=== PATIENT | female | born 1985 | race African-American/Black ===

== ENCOUNTER 2023-05-30 14:23 | Inpatient (IN) | payer OTHER, SELFPAY ==
--- NOTE | 2023-05-29 22:08 | ED.GENMED ---
History of Present Illness
<DO Miguel Márquez Filed: 05/31/23 15:00>
General
Chief Complaint: Overdose Unintentional
Source: patient and ambulance crew
Time Seen by Provider: 05/29/23 21:53
Travel History
Have you had any contact with someone who has COVID-19?: Unable to Answer
Do you have any symptoms of coronavirus? Fever > 100 degrees, chills, cough, shortness of breath, sore throat, loss of taste or smell, muscle aches, or headache?: Unable to Answer
History of Present Illness
History of Present Illness:
38-year-old female brought to the emergency room by ambulance due to pronounced choreiform movements. She was observed by veda to be having the choreiform movements prompting him to call 911. Patient has a known history of methamphetamine
use. She has been here at this emergency room at least 2 times for similar episodes. Patient is able to answer questions despite these movements. She admits to shooting methamphetamine earlier this evening.
Past History
<DO Miguel Márquez Filed: 05/31/23 15:00>
Past History
ED Past Medical History: Asthma, Psychiatric (Depression, substance abuse) and Other (IVDA)
ED Past Surgical History: None
Social History
Drug: Former user, Marijuana, Cocaine, Narcotics and IVDA
Personal: Single
Family History
Family History: Negative Diabetes, Hypertension or CAD
Phy Exam
<DO Miguel Márquez Filed: 05/31/23 15:00>
Physical Exam
Physical Exam:
General: Awake, Alert, Oriented X3. Pronounced choreiform movements of the upper extremities, face, tongue
Vitals: Tachycardic
Head: Atraumatic
Eyes: Pupils equal, EOMI
Throat: Airway intact, no exudates
Neck: Trachea midline
Lungs: Clear and equal b/l
Heart: Regular rate, no murmurs
Abd: Soft, Nontender, No pulsatile mass
Neuro: No focal weakness
Skin: Warm, dry, no rash
Extremities: pulses equal b/l, no edema
Course
Noylt;Marquise Griffin, DO - Last Filed: 05/31/23 15:00>
Orders/Labs/Results
Orders:
Orders
05/29/23 21:43
Diphenhydramine [Benadryl] 50 mg .ROUTE .STK-MED ONE
Lorazepam [Ativan] 2 mg .ROUTE .STK-MED ONE
05/29/23 22:04
Cardiac Monitoring- Treatment ONCE
0.9% Sodium Chloride 1000 ml [Nss] 1,000 ml IV BOLUS
Lorazepam [Ativan] 2 mg IV NOW STA
Test Result ONCE
05/29/23 22:23
Complete Blood Count/With Diff Urgent
Comprehensive Metabolic Panel Urgent
Ferritin Urgent
Comment: ADD
Folate Urgent
Comment: ADD
HCG, Serum Qualitative Screen Urgent
Iron Urgent
Comment: ADD
Total Iron Binding Urgent
Comment: ADD
Vitamin B12 Urgent
Comment: ADD
05/29/23 22:29
Diphenhydramine [Benadryl] 50 mg IM NOW STA
05/30/23 Breakfast
Regular
At Your Request: Full Participation
Does patient need a safe tray?: No
Fluid Restriction: 1440 mL/day (48 oz)
05/30/23 10:41
Tib/Fib, Left 2 View [CR Leg Tibia/fibula Left 2 Vw] Urgent
Comment:
Reason For Exam: proximal anterior tibial pain where IO was placed
05/30/23 12:37
0.9% Sodium Chloride 1000 ml [Nss] 1,000 ml IV BOLUS
05/30/23 12:53
Fentanyl, Urine Urgent
Osmolality, Random Urine Urgent
Date Specimen was Collected: 05/30/23
Time Specimen was Collected: 12:42
Comment: ADD ON
Urinalysis Urgent
Date Specimen was Collected: 05/30/23
Time Specimen was Collected: 12:42
Comment: ADD ON
Urine Drug Abuse Screen Urgent
Date Specimen was Collected: 05/30/23
Time Specimen was Collected: 12:42
Urine Microscopic Urgent
Date Specimen was Collected: 05/30/23
Time Specimen was Collected: 12:42
Urine Sodium Urgent
Date Specimen was Collected: 05/30/23
Time Specimen was Collected: 12:42
Comment: ADD ON
05/30/23 13:35
Add On- LAB Routine
Tests Added?: iron, ferritin, tibc, folate, vit b12
Add On- LAB Urgent
Tests Added?: urinalysis, urine sodium, urine osmo
05/30/23 13:51
Admit/Transfer Patient As Directed
Co-Sign Provider:
Level of Care: Inpatient admission
Assign to:: Medical/Surgical
Physician / Group: Dre
Diagnosis: Hyponatremia
Reason for Hospitalization: IVFs
Expected length of stay greater than two midnights?: Yes
ELOS- Estimated Length of Stay in days: 3
I certify the patient meets the requirements for IP care: Yes
Code Status As Directed
Resuscitation Status: Full Code
05/30/23 14:04
NEUROLOGY CONSULT Routine
Consulting Provider: Vahe Stovall
Was physician already notified: Yes
05/30/23 16:29
0.9% Sodium Chloride 1000 ml [Nss] 1,000 ml IV 125 mls/hr
Acetaminophen [Tylenol] 650 mg PO Q4HPRN PRN
05/30/23 16:29
Case Management Consult Once
Case Management Consult: Other
Activity As Directed
Activity Level: Out of Bed-Early Mobility
With Assistance
Hemetest Stools As Directed
Comment: Notify Physician of any positive results; May Stop if Negative x 3
I&O [Intake/ Output] As Directed
Frequency: q12h
Pneumatic Compression Sleeves As Directed
Type: Knee high
Vital Signs As Directed
Frequency: Per unit guidelines
DX Deep Vein Thrombosis Video Routine
05/31/23 07:03
Basic Metabolic Panel IN AM
Complete Blood Count/No Diff IN AM
Magnesium IN AM
Abnormal Lab Results
05/29/23 05/30/23
22:23 12:53
WBC 19.6 H 10^3/uL
(4.8-10.8)
RBC 3.88 L 10^6/uL
(4.20-5.40)
Hgb 8.9 L g/dL
(12.0-16.0)
Hct 26.6 L %
(37.0-47.0)
MCV 68.6 L fL
(81.0-99.0)
MCH 22.9 L pg
(27.0-31.0)
RDW 18.4 H %
(11.5-14.5)
Plt Count 498 H 10^3/uL
(130-400)
Abs Immat Gran (auto) 0.1 H 10^3/uL
(0-0.05)
Absolute Neuts (auto) 12.8 H 10^3/uL
(1.4-6.5)
Absolute Lymphs (auto) 4.5 H 10^3/uL
(1.2-3.4)
Absolute Monos (auto) 2.1 H 10^3/uL
(0.1-0.6)
Monocytes % 10.8 H %
(1.7-9.3)
Sodium 128 L mmol/L
(135-145)
Carbon Dioxide 15 L mmol/L
(22-30)
BUN 22 H mg/dl
(7-17)
Glucose 63 L mg/dl
(70-99)
% Saturation 13 L %
(20-50)
AST 289 H U/L
(14-36)
ALT 82 H U/L
(0-35)
Folate > 20.0 H ng/ml
(2.76-20)
Urine Ketones 3+ A
(Negative)
Ur Leukocyte Esterase Trace A
(Negative)
Urine Bacteria Few A
(Negative)
Ur Amphetamines Screen Positive H
(Negative)
U Methamphetamines Scrn Positive H
(Negative)
U Benzodiazepines Scrn Positive H
(Negative)
U Marijuana (THC) Screen Positive H
(Negative)
05/29/23 22:23
05/29/23 22:23
Vital Signs
Initial and Last Documented VS:
Initial Vital Signs
Resp
38
05/29/23 21:45
Last Documented Vital Signs
Temp Pulse Resp BP Pulse Ox
98.6 F 105 20 128/88 100
05/31/23 07:20 05/31/23 07:20 05/31/23 07:20 05/31/23 07:20 05/31/23 07:20
<Allan Wong, DO - Last Filed: 05/30/23 12:40>
Orders/Labs/Results
Orders:
Orders
05/29/23 21:43
Diphenhydramine [Benadryl] 50 mg .ROUTE .STK-MED ONE
Lorazepam [Ativan] 2 mg .ROUTE .STK-MED ONE
05/29/23 22:04
Cardiac Monitoring- Treatment ONCE
0.9% Sodium Chloride 1000 ml [Nss] 1,000 ml IV BOLUS
Lorazepam [Ativan] 2 mg IV NOW STA
Test Result ONCE
05/29/23 22:23
Complete Blood Count/With Diff Urgent
Comprehensive Metabolic Panel Urgent
Ferritin Urgent
Comment: ADD
Folate Urgent
Comment: ADD
HCG, Serum Qualitative Screen Urgent
Iron Urgent
Comment: ADD
Total Iron Binding Urgent
Comment: ADD
Vitamin B12 Urgent
Comment: ADD
05/29/23 22:29
Diphenhydramine [Benadryl] 50 mg IM NOW STA
05/30/23 Breakfast
Regular
At Your Request: Full Participation
Does patient need a safe tray?: No
Fluid Restriction: 1440 mL/day (48 oz)
05/30/23 10:41
Tib/Fib, Left 2 View [CR Leg Tibia/fibula Left 2 Vw] Urgent
Comment:
Reason For Exam: proximal anterior tibial pain where IO was placed
05/30/23 12:37
0.9% Sodium Chloride 1000 ml [Nss] 1,000 ml IV BOLUS
05/30/23 12:53
Fentanyl, Urine Urgent
Osmolality, Random Urine Urgent
Date Specimen was Collected: 05/30/23
Time Specimen was Collected: 12:42
Comment: ADD ON
Urinalysis Urgent
Date Specimen was Collected: 05/30/23
Time Specimen was Collected: 12:42
Comment: ADD ON
Urine Drug Abuse Screen Urgent
Date Specimen was Collected: 05/30/23
Time Specimen was Collected: 12:42
Urine Microscopic Urgent
Date Specimen was Collected: 05/30/23
Time Specimen was Collected: 12:42
Urine Sodium Urgent
Date Specimen was Collected: 05/30/23
Time Specimen was Collected: 12:42
Comment: ADD ON
05/30/23 13:35
Add On- LAB Routine
Tests Added?: iron, ferritin, tibc, folate, vit b12
Add On- LAB Urgent
Tests Added?: urinalysis, urine sodium, urine osmo
05/30/23 13:51
Admit/Transfer Patient As Directed
Co-Sign Provider:
Level of Care: Inpatient admission
Assign to:: Medical/Surgical
Physician / Group: Dre
Diagnosis: Hyponatremia
Reason for Hospitalization: IVFs
Expected length of stay greater than two midnights?: Yes
ELOS- Estimated Length of Stay in days: 3
I certify the patient meets the requirements for IP care: Yes
Code Status As Directed
Resuscitation Status: Full Code
05/30/23 14:04
NEUROLOGY CONSULT Routine
Consulting Provider: Vahe Stovall
Was physician already notified: Yes
05/30/23 16:29
0.9% Sodium Chloride 1000 ml [Nss] 1,000 ml IV 125 mls/hr
Acetaminophen [Tylenol] 650 mg PO Q4HPRN PRN
05/30/23 16:29
Case Management Consult Once
Case Management Consult: Other
Activity As Directed
Activity Level: Out of Bed-Early Mobility
With Assistance
Hemetest Stools As Directed
Comment: Notify Physician of any positive results; May Stop if Negative x 3
I&O [Intake/ Output] As Directed
Frequency: q12h
Pneumatic Compression Sleeves As Directed
Type: Knee high
Vital Signs As Directed
Frequency: Per unit guidelines
DX Deep Vein Thrombosis Video Routine
05/31/23 07:03
Basic Metabolic Panel IN AM
Complete Blood Count/No Diff IN AM
Magnesium IN AM
Abnormal Lab Results
05/29/23 05/30/23
22:23 12:53
WBC 19.6 H 10^3/uL
(4.8-10.8)
RBC 3.88 L 10^6/uL
(4.20-5.40)
Hgb 8.9 L g/dL
(12.0-16.0)
Hct 26.6 L %
(37.0-47.0)
MCV 68.6 L fL
(81.0-99.0)
MCH 22.9 L pg
(27.0-31.0)
RDW 18.4 H %
(11.5-14.5)
Plt Count 498 H 10^3/uL
(130-400)
Abs Immat Gran (auto) 0.1 H 10^3/uL
(0-0.05)
Absolute Neuts (auto) 12.8 H 10^3/uL
(1.4-6.5)
Absolute Lymphs (auto) 4.5 H 10^3/uL
(1.2-3.4)
Absolute Monos (auto) 2.1 H 10^3/uL
(0.1-0.6)
Monocytes % 10.8 H %
(1.7-9.3)
Sodium 128 L mmol/L
(135-145)
Carbon Dioxide 15 L mmol/L
(22-30)
BUN 22 H mg/dl
(7-17)
Glucose 63 L mg/dl
(70-99)
% Saturation 13 L %
(20-50)
AST 289 H U/L
(14-36)
ALT 82 H U/L
(0-35)
Folate > 20.0 H ng/ml
(2.76-20)
Urine Ketones 3+ A
(Negative)
Ur Leukocyte Esterase Trace A
(Negative)
Urine Bacteria Few A
(Negative)
Ur Amphetamines Screen Positive H
(Negative)
U Methamphetamines Scrn Positive H
(Negative)
U Benzodiazepines Scrn Positive H
(Negative)
U Marijuana (THC) Screen Positive H
(Negative)
05/29/23 22:23
05/29/23 22:23
Vital Signs
Initial and Last Documented VS:
Initial Vital Signs
Resp
38
05/29/23 21:45
Last Documented Vital Signs
Temp Pulse Resp BP Pulse Ox
98.6 F 105 20 128/88 100
05/31/23 07:20 05/31/23 07:20 05/31/23 07:20 05/31/23 07:20 05/31/23 07:20
<Marquise Griffin DO - Last Filed: 05/31/23 15:00>
MDM/Problems Addressed
Differential Diagnosis Includes:
meth toxicity, cocaine toxicity, dystonic rx
MDM/Problems Addressed:
Patient presents with choreiform movements secondary to the use of methamphetamines. The patient uses meth frequently and states she always gets these movements. She is not particularly tachycardic or hypertensive. She not hypothermic. I do not
think she has 'overdose' of a sympathomimetic but rather adverse reaction. Patient treated with benzos and her choreiform movements decreased in activity. Patient will be observed until she is stable for discharge. Patient signed out at the end
of my shift
<Marquise Griffin DO - Last Filed: 05/31/23 15:00>
*Critical Care Note
Total Time (30-74mins, 75-104mins- exclusive of procedures): Not Applicable
<Allan Wong, DO - Last Filed: 05/30/23 12:40>
Update Note
Update Note:
12:30 PM care of patient was transitioned earlier in the morning for reevaluation and likely discharge. Patient has suspected methamphetamine abuse. The plan was to metabolize, ambulate and discharge. However, I reassessed the patient multiple
times. She is very sleepy. She is able to speak and hold a short conversation but she is too weak and wobbly when I try to ambulate her. Will give IV fluids for mild hyponatremia and ultimately admit. Drug and alcohol counselor did evaluate her
and they believe she has a rehab bed available but she is too unstable in this state to go
ED Attending Note
<Marquise Griffin DO - Last Filed: 05/31/23 15:00>
-
Portions of this chart may have been created with voice recognition software.� Occasional wrong word or��sound alike� substitutions may have occurred due to the inherent limitations of voice recognition software.
Discharge Plan
Departure
Patient Disposition: Admit
Date of Disposition: 05/30/23
Time of Disposition: 12:35
Admit to: Med/Surg
Presentation/result/management discussed w/ accepting MD/DO: Hospitalist
Discharge Problem:
Acute drug overdose, Acute hyponatremia
Interventions
Interventions:
*General Assessment Last Done: 05/29/23 22:31
*Neglect/Abuse Screening Last Done: 05/29/23 22:31
ED- Fall Risk Assessment Last Done: 05/30/23 16:25
*Nursing Disposition Last Done: 05/30/23 16:25
ED- Cardiac Assessment Last Done: 05/30/23 07:01
ED- Neurological Assessment Last Done: 05/29/23 22:32
ED-Psychological Assessment Last Done: 05/29/23 22:32
ED- Pulmonary Assessment Last Done: 05/30/23 07:01
Discharge Date and Time
Discharge Date/Time: 05/30/23 16:26
[2023-05-29] MEDS: ATIVAN 2 MG IV (22:27)
[2023-05-29 22:28] LABS: % Basophils 0.4 % (0-2); % Eosinophils 0.1 % (0-6); % Immature Granulocytes 0.5 % (0-0.5); % Lymphocytes 23.2 % (20.5-51.1); % Monocytes 10.8 % (1.7-9.3); Absolute Basophils 0.1 10^3/uL (0-0.2); Absolute Immature Granulocytes 0.1 10^3/uL (0-0.05); Absolute Lymphocytes 4.5 10^3/uL (1.2-3.4); Absolute Monocytes 2.1 10^3/uL (0.1-0.6); Absolute Neutrophils 12.8 10^3/uL (1.4-6.5); Hematocrit 26.6 % (37.0-47.0); Hemoglobin 8.9 g/dL (12.0-16.0); Mean Corp Hgb Conc. 33.5 g/dL (33.0-37.0); Mean Corpuscular Hgb 22.9 pg (27.0-31.0); Mean Corpuscular Volume 68.6 fL (81.0-99.0); Mean Platelet Volume 8.6 fL (7.4-10.4); Nucleated Red Blood Cells % 0 %; Platelet Count 498 10^3/uL (130-400); Red Blood Cell Count 3.88 10^6/uL (4.20-5.40); Red Cell Dist. Width 18.4 % (11.5-14.5); White Blood Cell Count 19.6 10^3/uL (4.8-10.8)
[2023-05-29] MEDS: BENADRYL 50 MG IM (22:30)
[2023-05-29 22:47] LABS: ALT (SGPT) 82 U/L (0-35); AST (SGOT) 289 U/L (14-36); Albumin 4.5 g/dl (3.5-5.0); Alkaline Phosphatase 122 U/L (38-126); Blood Urea Nitrogen 22 mg/dl (7-17); Calcium 9.2 mg/dl (8.4-10.2); Carbon Dioxide 15 mmol/L (22-30); Chloride 101 mmol/L (98-107); Glucose 63 mg/dl (70-99); HCG, Serum Qualitative Screen Negative; Potassium 4.9 mmol/L (3.5-5.1); Sodium 128 mmol/L (135-145); Total Protein 7.1 g/dl (6.3-8.2); eGFR > 60.00
[2023-05-30] VITALS (7 sets, daily range): BP systolic 107–130; BP diastolic 68–88; BMI 29.2
--- NOTE | 2023-05-30 13:15 | PHANOTE ---
05/30/2023, med rec tech, pt. obtunded at time of interview; pt. has no meds. listed on [facility] and no recent pharmacy fill data. Pt.'s home med. list is unobtainable at this time.
[2023-05-30] MEDS: NSS 1000 IV ×2 (13:33→16:49)
[2023-05-30 13:34] LABS: Amphetamines Positive (Negative); Barbiturates Negative (Negative); Benzodiazepines Positive (Negative); Buprenorphine Negative (Negative); Cocaine Negative (Negative); Marijuana Positive (Negative); Methadone Negative (Negative); Methamphetamines Positive (Negative); Opiates Negative (Negative); Phencyclidine Negative (Negative); Tricyclic Antidepressants Negative (Negative)
[2023-05-30 13:53] LABS: Fentanyl, Urine Negative (Negative)
[2023-05-30 13:57] LABS: Urine Sodium 54 mmol/L (30-90)
--- NOTE | 2023-05-30 14:05 | HPS.HSE ---
Addendum entered and electronically signed by Abdelrahman Erickson MD 05/30/23 18:16:
Pt answering basic questions. Pt examined with ISA Kaye student in room during entire exam
Seen independently and agree with PA note
Lungs clear
CV reg Ext no edema
Neuro choreiform movement
Imp: methamphetamine drug abuse
P:recheck labs in AM
As per CM: CM spoke with [facility] for placement update. As per Tahira at [facility], she is working on a bed at [facility] in [place] for placement on 05/30 if patient is medically ready. CM will continue to follow as needed.
Original Note:
Family Physician
-
Family Physician: INTERVIEWE UNKNOWN - PT NOT
Chief Complaint
-
Meth Overdose
History of Present Illness
Patient is a 38 y/o female with PMH of substance abuse and asthma who presents with choreiform movements. Patient was brought in by EMS after bystanders called 911 with concern for patient with uncontrolled movements of extremities. Patient admits
to injecting methamphetamine last evening. She says that she is a binge user and uses a few days per month. She denies drug use other than methamphetamine however UDS is positive for marijuana. She says these symptoms of tremors and myalgias are
typical in the days following a aaliyah. Patient says she eats most days but not everyday and can't remember her last meal. She admits to poor fluid intake recently. She cannot remember her last BM but says she has been urinating per usual. She is
somnolent and needed to be woken throughout the conversation.
Medical History
Past Medical History
Past Medical History: Reports Other
Additional Past Medical History:
Depression
Anxiety
Substance abuse
Past Surgical History: Reports Other
Additional Past Surgical History:
Foot surgery
Social History
Tobacco: Smoker (2 pack of daily)
Alcohol: None
Drug: Marijuana (Patient denies, though UDS is positive) and IVDA (Meth)
Personal: Single
Family History
Family History: Not pertinent
Allergies / Home Medications
Allergies reflects when Allergies were last updated in [facility].
Home Medications with original date entered in [facility]
Allergy/Medication List:
Allergies
Allergy/AdvReac Type Severity Reaction Status Date / Time
No Known Allergies Allergy Verified 01/03/23 17:10
Home Medications
Unobtainable 05/30/23
Review of Systems
-
Unable to obtain full review of systems at this time due to: Acuity
Physical Exam
Vital Signs
Vital Signs
Temp Pulse Resp BP Pulse Ox
98.5 F 108 16 115/80 100
05/29/23 22:10 05/30/23 10:24 05/30/23 13:39 05/30/23 13:58 05/30/23 10:22
Physical Exam
General: Well Nourished, Comfortable and Other (Somnolent but easily arousable)
HEENT: NormoCephalic, Anicteric and Atraumatic
Respiratory: Clear and Non Labored Respirations
Cardiac: S1/S2 and Regular Rhythm
GI: Soft and Non Tender
Musculoskeletal: No Clubbing, No Cyanosis and No Edema
Skin: Warm and Dry
Neuro: Other (Choreiform movements noted)
Laboratory Results
-
05/29/23 22:23
05/29/23 22:23
Laboratory Results
Total Bilirubin 1.0 mg/dl (0.2-1.3) 05/29/23 22:23
AST 289 U/L (14-36) H 05/29/23 22:23
ALT 82 U/L (0-35) H 05/29/23 22:23
Alkaline Phosphatase 122 U/L (38-126) 05/29/23 22:23
Data Reviewed
-
Lab Data: Labs Reviewed by me
Old Records: Reviewed
Impression/Plan
-
Hyponatremia, suspect hypovolemic
-Check urine electrolytes
-Continue IVFS
-Recheck sodium in AM
Choreiform Movements, possibly related to methamphetamines
-Consult Neurology
Microcytic Anemia
-Check iron studies
Poly-Substance Use Disorder
-UDS positive for methamphetamines, and marijuana
-Case Management consult for Drug/Alcohol rehab
-Offered nicotine path which patient declined
DVT proph: SCDs
Code Status: Full Code
[2023-05-30 14:29] LABS: Osmolality Urine 432 mOsm/kg (300-900)
[2023-05-30 14:42] LABS: Urine Albumin Negative (Neg - Trace); Urine Bilirubin Negative (Negative); Urine Character Clear (Clear); Urine Color Yellow; Urine Glucose Negative (Negative); Urine Ketone 3+ (Negative); Urine Leukocyte Trace (Negative); Urine Nitrite Negative (Negative); Urine Occult Blood Negative (Negative); Urine Urobilinogen Negative (Neg - 1+)
[2023-05-30 15:01] LABS: Urine Squamous Cell >30 /LPF (Few)
[2023-05-30 15:03] LABS: Urine Bacteria Few (Negative); Urine Red Blood Cell 0-2 /HPF (0-2)
--- NOTE | 2023-05-30 15:07 | CM ---
CM reviewed medical records. Patient for admission.
RAUL spoke with [facility] for placement update. As per Tahira at [facility], she is working on a bed at [facility] in [place] for placement on 05/30 if patient is medically ready. RAUL will continue to follow as needed.
--- NOTE | 2023-05-30 16:55 | PTCARENOTE ---
Rn flow Coding Coordinator- Attempted to interview patient for admission questions. Patient very sedated.
--- NOTE | 2023-05-30 17:00 | PTCARENOTE ---
RECEIVED PT DROWSY. PT IS AROUSABLE TP CONSISTENT VOCAL STIMULATION. AAO*3, FOLLOWS SIMPLE COMMANDS, SPONTANEOUS INVOLUNTARY MOVEMENT NOTED TO B/L UE AND B/L LE. LUNGS ARE CLEAR/ DIMINISHED AT THE BASES. VITAL SIGNS STABLE AND PATIENT DENIES ANY
CHEST PAIN OR SHORTNESS OF BREATH. NORMAL SALINE STARTED AT 60CC HOUR PER ORDER. MULTIPLE SCABBED TRACK SITES NOTED RIGHT HAND AND FOREARM. BED ALARM PLACED. CALL [facility]IDLEY WITHIN REACH. WILL CONTINUE TO MONITOR
[2023-05-30 17:36] LABS: Iron 47 ug/dl (37-170)
[2023-05-30 17:44] LABS: Percent Saturation 13 % (20-50); Total Iron Binding Capacity 349 ug/dl (265-497)
[2023-05-30 18:19] LABS: Ferritin 14.9 ng/ml (6.24-137)
[2023-05-30 18:51] LABS: Folate > 20.0 ng/ml (2.76-20); Vitamin B12 589 pg/ml (239-931)
[2023-05-30 23:12] LABS: Glucose - Point of Care 96 mg/dl (70-99)
--- NOTE | 2023-05-31 00:03 | PTCARENOTE ---
pt is drowsy, reporting feeling lightheaded and dizzy. JW=493/68 p=85. accucheck=96. informed [facility] [employer] Casandra Hurtado- increase IVF 125.
[2023-05-31] MEDS: NSS 1000 IV (03:55)
[2023-05-31 07:20] VITALS: BP 128/88
[2023-05-31 07:30] LABS: Hematocrit 27.7 % (37.0-47.0); Hemoglobin 8.7 g/dL (12.0-16.0); Mean Corp Hgb Conc. 31.4 g/dL (33.0-37.0); Mean Corpuscular Hgb 22.4 pg (27.0-31.0); Mean Corpuscular Volume 71.4 fL (81.0-99.0); Mean Platelet Volume 8.5 fL (7.4-10.4); Platelet Count 410 10^3/uL (130-400); Red Blood Cell Count 3.88 10^6/uL (4.20-5.40); Red Cell Dist. Width 18.5 % (11.5-14.5); White Blood Cell Count 7.7 10^3/uL (4.8-10.8)
[2023-05-31 08:06] LABS: Blood Urea Nitrogen 6 mg/dl (7-17); Calcium 8.3 mg/dl (8.4-10.2); Carbon Dioxide 21 mmol/L (22-30); Chloride 111 mmol/L (98-107); Estimated Creatinine Clearance > 125 ml/min; Glucose 88 mg/dl (70-99); Potassium 3.6 mmol/L (3.5-5.1); Sodium 136 mmol/L (135-145); eGFR > 60.00
[2023-05-31 08:20] VITALS: BP 128/88
--- NOTE | 2023-05-31 08:55 | CON.NEURO4 ---
Addendum entered and electronically signed by Dom Shabazz MD 05/31/23 15:11:
Studies reviewed.
I have personally examined the patient. I reviewed and agree with the ELECTRICAL LINEMAN's Note.
My addenda:
Awake, alert, interactive. No acute distress.
Speech intact.
Follows 2-step requests w/o difficulty. No tremor.
Extra-ocular movements grossly intact.
Near continuous medium amplitude choreic movements of entire body greatest in bilateral arms and less in the legs
Facial movements full and symmetric. Hearing intact to normal conversational volume.
Normal UE movements bilaterally.
Neck: full ROM.
Chest: no dyspnea
Heart: no JVD
Ext: (-) Clubbing, (-) Cyanosis, (-) Edema
IMPRESSIONS/RECOMMENDATIONS:
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
Provide benztropine 1 mg by mouth twice a day in hopes of reducing severity of movements, although would expect spontaneous reduction over time
Continue supportive care
Would avoid additional gabapentin due to the risk of that medication producing chorea
Will continue to follow as needed.
Original Note:
Consultation - Neurology 4
-
CONSULTING PHYSICIAN: Dom Shabazz MD
REFERRING PHYSICIAN: Hospitalists/Dr. Erickson
DICTATED BY: SHARLA Champagne
DATE/TIME OF REQUEST: 05/30/23
DATE/TIME OF CONSULTATION: 05/31/23
Reason for Consultation: Chorea
History of Present Illness:
This is a 38-year-old right-handed female who has presented to the hospital on 05/29/23 with report of pronounced choreiform movements witnessed by a passerby who then called 911. Patient reports that she is a methamphetamine abuser. About five years
ago, she started to develop uncontrollable body movements after she 'shoots up.' The uncontrollable body movements occur every time she shoots up and last for varying lengths, sometimes days, sometimes weeks. They seem to be becoming more prolonged
as time goes on. She has been on Cogentin once daily in the past with no relief of symptoms and current she takes duloxetine and gabapentin, which do not improve the movements but do help with her discomfort. The movements are so severe that she has
swelling in her hands at times from hitting them on objects, and she needed a double fasciotomy in her feet due to trauma from hitting her feet on things trying to ambulate. And she has scabs on her tongue from biting it because her tongue has the
same uncontrollable movements at times. She also endorses sharp headaches lasting a few seconds to one minute associated with seeing floating dots. She denies any dizziness, speech/swallow difficulty, nausea, weakness, chest pain, palpitations, and
shortness of breath. She reports bilateral hand cramping/discomfort.
Past Medical History: IVDA, asthma, depression
Surgical History: B/L foot fasciotomy
Family History: Reviewed and noncontributory.
Social History: IVDA, methamphetamine, cocaine, narcotics, and marijuana.
Allergies: No known allergies.
Home Medications: See below.
Review of Symptoms:
Patient denies any fever, chest pain, shortness of breath, GI or symptoms.
�Per the HPI.�All systems are reviewed negative except above.
Physical Exam:
The patient is afebrile, abdomen is nondistended, breathing is unlabored, skin is warm and dry, trace bilateral hand edema, scab on tongue.
Neurologic Examination:
The patient is awake, alert and oriented x 3. She is able to follow commands and answer questions appropriately. There is no aphasia or dysarthria. On cranial nerve assessment, pupils are 3 mm bilateral, round and reactive to light and
accommodation. Visual watt are full. Extraocular movements are intact. Facial sensations are intact and bilaterally symmetrical, there is no facial asymmetry. Hearing is intact bilaterally to normal conversation volume. Tongue palate and uvula are
midline. Sternocleidomastoid strengths are full bilaterally. Motor strengths are 5/5 bilateral upper and lower extremities on medical research [place] scale. EMMANUELLE drift due to chorea. Generalized constant chorea. Deep tendon reflexes are 2+ bilateral
upper and lower extremities and Babinski is absent bilaterally. Coordination is intact by finger to nose bilaterally.
Lab Results: See below.
Neuro Imaging: None.
Differentials for the patient's presentation include:
1. Chorea secondary to methamphetamine usage.
2. Iron deficiency anemia.
Patient has the following risk factors for their symptoms: IVDA
Recommendations:
-Initiate Cogentin 1mg BID for chorea. Continue duloxetine and gabapentin.
-Initiate Ferrous sulfate 325mg HS, PRN stool softener if constipation occurs.
-Advised methamphetamine avoidance.
-PT evaluations.
-DVT prophylaxis.
Discussed patient care with: Dr. Shabazz, the patient
Vital Signs and Labs
-
Vital Signs and Labs:
Vital Signs
Temp Pulse Resp BP Pulse Ox
98.6 F 105 20 128/88 100
05/31/23 07:20 05/31/23 07:20 05/31/23 07:20 05/31/23 07:20 05/31/23 07:20
Lab Results
05/31/23 07:03
05/31/23 07:03
Sodium 136 mmol/L (135-145) D 05/31/23 07:03
Potassium 3.6 mmol/L (3.5-5.1) D 05/31/23 07:03
BUN 6 mg/dl (7-17) L 05/31/23 07:03
Glucose 88 mg/dl (70-99) 05/31/23 07:03
Calcium 8.3 mg/dl (8.4-10.2) L 05/31/23 07:03
Vitamin B12 Cancelled 05/30/23 13:47
Ur Buprenorphine Negative (Negative) 05/30/23 12:53
Medications
-
Active Medications
Generic Name Dose Route Start Last Admin
Trade Name Freq PRN Reason Stop Dose Admin
Acetaminophen 650 mg 05/30/23 16:29
Acetaminophen 325 Mg Tablet PO 06/27/23 16:28
Q4HPRN PRN
mild pain/ fever>100.5F
Benztropine Mesylate 1 mg 05/31/23 10:00 05/31/23 10:16
Benztropine 1 Mg Tablet PO 06/28/23 09:59 1 mg
BID LYLE Administration
Docusate Sodium 100 mg 05/31/23 09:09
Docusate Sodium 100 Mg Capsule PO 06/28/23 09:08
BIDPRN PRN
no BM > 24 hours
Ferrous Sulfate 325 mg 05/31/23 22:00
Ferrous Sulfate 325 Mg Tablet PO 06/28/23 21:59
HS LYLE
Sodium Chloride 1,000 mls @ 125 mls/hr 05/30/23 16:29 05/31/23 03:55
Nss IV 1,000 mls
.Q8H LYLE Administration
Sodium Chloride 0 flush 05/30/23 17:00
Sodium Chloride 0.9% (Flush) Syringe IV 06/27/23 16:59
PER PROTOCOL LYLE
Home Medications
Medication Instructions Recorded
duloxetine 1 tab PO DAILY 05/30/23
gabapentin 300 mg capsule 300 mg PO TID 05/30/23
[2023-05-31] MEDS: COGENTIN 1 MG PO ×2 (10:16→20:18)
--- NOTE | 2023-05-31 12:00 | CM ---
Addendum entered by Dori Guo 05/31/23 13:39:
Received call fro Tahira at [facility]
Pt currently not insured.
Cont to work with pt to obtain insurance/[place] for rehab
[facility] is not in network per Tahira -has referred to other facilities
CM will cont to follow for d/c needs
Original Note:
CM received call from Tahira at [facility] - requesting to know if pt is medically ready for d/c
Spoke with Dr Erickson - pt to receive IV Iron today - Tahira made aware and will update [facility]
Plan - anticipate transfer to [facility] when medically stable and accepted to rehab
--- NOTE | 2023-05-31 12:43 | W.PN.HOSP.TC ---
Today's Communication/Plan
-
IV Fe
Liver US
start Cogentin
stop IVF
recheck labs in AM
Assessment / Plan
Assessment / Plan
Poly-Substance Use Disorder
-UDS positive for methamphetamines, and marijuana
-Case Management consult (discussed with RAUL Meadows) for Drug/Alcohol rehab, potential transfer 05/31
-Offered nicotine path which patient declined
Hyponatremia, suspect hypovolemic
better, Na 128-->136
-will stop IVFS
-Recheck sodium in AM
Choreiform Movements, possibly related to methamphetamines
- Neurology input appreciated, started on Cogentin
Microcytic Anemia
based on hx, most likely menstrual blood loss
HCG neg
-Fe sat 13%, Ferritin 14.9
will write IV Fe infusion
Transaminitis
most likely related to IV drug abuse, will check Liver US
DVT proph: SCDs
Code Status: Full Code
Anticipated Discharge: 24 - 48 hours
Subjective/Interval History
-
Date of Service: May 31, 2023
Much more alert and conversant
Objective Data
-
Labs:
Laboratory Results
05/31/23
07:03
WBC 7.7
Hgb 8.7 L
Hct 27.7 L
Plt Count 410 H
Sodium 136 D
Potassium 3.6 D
Chloride 111 H
Carbon Dioxide 21 L
BUN 6 L
Creatinine 0.5 L
Glucose 88
Calcium 8.3 L
Vital Signs:
Vital Signs
Temp Pulse Resp BP Pulse Ox
98.6 F 105 20 128/88 100
05/31/23 07:20 05/31/23 07:20 05/31/23 07:20 05/31/23 07:20 05/31/23 07:20
I&O
05/30/23 05/31/23 06/01/23
06:59 06:59 06:59
Intake Total 2374
Output Total 0 / 0
Balance 2374
Review of Systems
-
History Source: Patient (Pt examined with SATISH Zarate in room during entire visit)
Constitutional: Denies Fever
EENT: Reports No Symptoms Reported
Respiratory: Reports No Symptoms
Cardiac: Reports No Symptoms
Abdomen/GI: Reports No Symptoms
Genitourinary: Reports Vaginal Bleeding (none currently, but pt states she has heavy menstrual flow that lasts for 6 days every month)
Physical Exam
-
General: Well Developed, Well Nourished and No Apparent Distress
HEENT: Normocephalic, Atraumatic and Moist Mucous Membranes
Respiratory: Clear to Auscultation; Negative Wheezes, Rales or Rhonchi
Cardiac: Regular Rhythm and S1/S2
GI: Soft, Nontender and Nondistended
Musculoskeletal: No Clubbing, No Cyanosis and No Edema
Neuro: Awake, Alert and Other (choreiform movement, slightly reduced compared to yesterday)
[2023-05-31] MEDS: FERRLECIT 110 MG IV (13:29)
[2023-05-31] MEDS: NSS IV (13:33)
--- NOTE | 2023-05-31 14:02 | CS.PSYCHR ---
Consult Summary - Psychiatry
-
Pt is 38 yo female with hx of methamphetamine use, brought in by EMS after bystanders called 911 with concern for patient with uncontrolled movements of extremities. Patient admits to injecting methamphetamine the night before admission. Pt reports
binge methamphetamine use. UDS was positive for amphet, benzo, THC. Pt reports movements worsen after meth use; she attributes them to substance, but they have become more persistent. Pt states she had 5 years clean in a structured environment,
but now feels discouraged, states she always craves methamphetamine. Pt c/o depression and anxiety, feels 'sad.' Pt is looking forward to going to [facility]- a 'mommy and me' program for women with addiction and young children; she hopes to
reunite with her 16 month-old son who is in foster care. Pt expected to go straight there from senior living, but was released. Pt states she was previously on Cymbalta, Gabapentin, Cogentin, Prazosin, Trazodone at [facility], but has not been on
medications recently.
PMH: pt reports low ext neuropathy, past foot surgery. 2 ppd smoker, pt states hx of H/A's/'migraines'
Psych Hx: outpatient tx at [facility], previous mediations above. Pt denies hx of antipsychotic medication
In the past, went from senior living to a [facility], then a 3-year addiction program- had 5 years 'clean'
MSE: alert, oriented, calm, cooperative. Continuous generalized choreiform movements. Affect appropriate, mildly dysphoric/tearful. Mood sad/moderately depressed. Denies Si. No signs of psychosis. Insight fair
Imp: Methamphetamine Use d/o
Unspecified Depression, anxiety
Rec: re-trial of Cymbalta and Gabapentin. Pt restarted on Cogentin by Neurology
Pt appears stable to go to [facility] program ([facility] in [place] per pt)
will follow
[2023-05-31 15:18] VITALS: BP 111/68
[2023-05-31] MEDS: NEURONTIN 100 MG PO ×2 (17:05→21:33)
[2023-05-31] MEDS: FEOSOL 325 MG PO (21:33)
[2023-05-31 23:16] VITALS: BP 112/79
[2023-06-01 07:33] VITALS: BP 115/69
[2023-06-01] MEDS: COGENTIN 1 MG PO (08:28)
[2023-06-01] MEDS: CYMBALTA DELAYED RELEASE 30 MG PO (08:28)
[2023-06-01] MEDS: NEURONTIN 100 MG PO ×2 (08:31→15:46)
[2023-06-01 10:28] LABS: % Basophils 0.6 % (0-2); % Eosinophils 1.8 % (0-6); % Immature Granulocytes 1.4 % (0-0.5); % Lymphocytes 32.3 % (20.5-51.1); % Neutrophils 52.9 % (42.2-75.2); Absolute Eosinophils 0.1 10^3/uL (0-0.7); Absolute Immature Granulocytes 0.1 10^3/uL (0-0.05); Absolute Lymphocytes 2.3 10^3/uL (1.2-3.4); Absolute Monocytes 0.8 10^3/uL (0.1-0.6); Absolute Neutrophils 3.8 10^3/uL (1.4-6.5); Hematocrit 26.7 % (37.0-47.0); Hemoglobin 8.3 g/dL (12.0-16.0); Mean Corp Hgb Conc. 31.1 g/dL (33.0-37.0); Mean Corpuscular Hgb 22.4 pg (27.0-31.0); Mean Corpuscular Volume 72.2 fL (81.0-99.0); Mean Platelet Volume 8.6 fL (7.4-10.4); Nucleated Red Blood Cells % 0 %; Platelet Count 425 10^3/uL (130-400); Red Cell Dist. Width 19.1 % (11.5-14.5); White Blood Cell Count 7.1 10^3/uL (4.8-10.8)
--- NOTE | 2023-06-01 10:30 | CM ---
Addendum entered by Liberty Bledsoe 06/01/23 17:04:
Pyramid scheduled to fern picker patient @ 1630
Addendum entered by Liberty Bledsoe 06/01/23 14:11:
Attending's Progress note faxed to Tahira from [facility] as requested
Addendum entered by Liberty Bledsoe 06/01/23 13:06:
Attending will DC patient later today
CM will Fax Attending's progress note when available to #[phone] per Tahira's request
Original Note:
Per Tahira #[phone] from [facility], [facility] has a bed available when patient is medically cleared. Attending notified
--- NOTE | 2023-06-01 11:32 | W.PN.UPDATE ---
Update Note
Progress Note Update
patient seen chart reviewed. discussed w nursing. noted in the chart that neuro had suggested gabapentin could worsen chorea. she objected to my dc of gabapentin saying it is the only thing which helps her with pain. she also complained of
numbness of four fingers of right hand and weakness (?carpal tunnel?) asked neuro to see her again. i had suggested to nsaid's to her but she said she takes 'the whole bottle' and it does not help. i asked her if there were any fh of
[facility]'s...initially she said gf but upon further clarification it seems gf had PD. the patient is talking about going to rehab. she is ambivalent about trying to regain custody of her son . she is not confident she could provide a home for
him. suggested she consider [facility] after rehab as this would provide her with rehab counseling psych care and a home. she anticipates she will be homeless at [facility] from [facility] and that is actually a prerequisite for [facility] and i have
seem motivated patients do very well there. as long as serum sodium holds would consider increase in cymbalta which will help w pain and depression. the patient does seem to be dysphoric which is understandable denies suicidality will follow
[2023-06-01 11:40] LABS: ALT (SGPT) 46 U/L (0-35); AST (SGOT) 53 U/L (14-36); Albumin 3.4 g/dl (3.5-5.0); Alkaline Phosphatase 86 U/L (38-126); Blood Urea Nitrogen 4 mg/dl (7-17); Carbon Dioxide 21 mmol/L (22-30); Chloride 111 mmol/L (98-107); Estimated Creatinine Clearance > 125 ml/min; Glucose 115 mg/dl (70-99); Potassium 4.1 mmol/L (3.5-5.1); Sodium 138 mmol/L (135-145); Total Bilirubin 0.2 mg/dl (0.2-1.3); Total Protein 5.8 g/dl (6.3-8.2); eGFR > 60.00
--- NOTE | 2023-06-01 13:55 | W.PN.HOSP.TC ---
Today's Communication/Plan
-
dc later today
Assessment / Plan
Assessment / Plan
Poly-Substance Use Disorder
-UDS positive for methamphetamines, and marijuana
-Case Management consult (discussed with RAUL Meadows) for Drug/Alcohol rehab, transfer to [facility]
-Offered nicotine path which patient declined
Hyponatremia, suspect hypovolemic
better, Na 128-->136-->138
-resolved
Choreiform Movements, possibly related to methamphetamines
- Neurology input appreciated, started on Cogentin, significant improvement
Microcytic Anemia
based on hx, most likely menstrual blood loss
HCG neg
-Fe sat 13%, Ferritin 14.9
IV Fe infusion until dc
Transaminitis
markedly improved
AST 289-->53. Most likely related to drug abuse, but with marked improvement there is a very low probability of finding abnormality on US and thus will discontinue
Pt is doing remarkably well and most important aspect in her care is to get her to a facility for drug abuse treatment. Will dc once arrangements completed
DVT proph: SCDs
Code Status: Full Code
see dictated dc note
Anticipated Discharge: Today
Subjective/Interval History
-
Date of Service: June 01, 2023
much more awake, choreiform movement less severe
Objective Data
-
Labs:
Laboratory Results
06/01/23
10:01
WBC 7.1
Hgb 8.3 L
Hct 26.7 L
Plt Count 425 H
Sodium 138
Potassium 4.1
Chloride 111 H
Carbon Dioxide 21 L
BUN 4 L
Creatinine 0.6
Glucose 115 H
Calcium 9.0
Total Bilirubin 0.2
AST 53 H
ALT 46 H
Alkaline Phosphatase 86
Vital Signs:
Vital Signs
Temp Pulse Resp BP Pulse Ox
99.7 F 79 16 115/69 98
06/01/23 07:33 06/01/23 07:33 06/01/23 07:33 06/01/23 07:33 06/01/23 08:25
I&O
05/31/23 06/01/23 06/02/23
06:59 06:59 06:59
Intake Total 2374
Output Total 0 / 0
Balance 2374
Review of Systems
-
History Source: Patient and Coordinated Provider
Constitutional: Denies Fever
EENT: Reports No Symptoms Reported
Respiratory: Reports No Symptoms
Cardiac: Reports No Symptoms
Abdomen/GI: Reports No Symptoms
Genitourinary: Reports Vaginal Bleeding (none currently, but pt states she has heavy menstrual flow that lasts for 6 days every month)
Physical Exam
-
General: Well Developed, Well Nourished and No Apparent Distress
HEENT: Normocephalic, Atraumatic and Moist Mucous Membranes
Respiratory: Clear to Auscultation; Negative Wheezes, Rales or Rhonchi
Cardiac: Regular Rhythm and S1/S2
GI: Soft, Nontender and Nondistended
Musculoskeletal: No Clubbing, No Cyanosis and No Edema
Neuro: Awake, Alert and Other (choreiform movement, significantly reduced compared to yesterday)
Psych: Calm
[2023-06-01] MEDS: FERRLECIT 110 MG IV (15:04)
[2023-06-01 15:09] VITALS: BP 129/75
--- NOTE | 2023-06-01 15:58 | W.DS.TRANS ---
DC Summary - Environmental Services Technician
-
Discharge Instructions:
Discharge Diagnosis/Procedures Methamphetamine abuse
Diet Regular
Activity No restrictions
Driving Restrictions No driving
Bathing Restrictions None
Blood Work CBC, CMP in 1 week
Instructions:
Stand-Alone Forms:
Changes to Home Medications: Yes
Discharge Medications:
DC Medications w/original date entered in [facility]
gabapentin 300 mg capsule 300 mg PO TID neuropathy 05/30/23
duloxetine 60 mg capsule,delayed release 60 mg PO DAILY neuropathy 05/31/23
trazodone 50 mg tablet 50 mg PO HS sleep 05/31/23
benztropine 1 mg tablet 1 mg PO BID Neurological Condition #60 tabs 06/01/23
docusate sodium 100 mg capsule 100 mg PO BIDPRN Constipation #30 caps 06/01/23
Home Medication Changes
congentin started to treat choreiform movements, can be stopped when movements resolve
Colace added for constipation
Pending Results: No
== END 2023-06-01 16:53 | DRG 897 ==
LOC: 4 WEST ACU 14:23
PROVIDERS: Physician Assistant Medical; Student in an Organized Health Care Education/Training Program; ADMITTING PHYSICIAN Internal Medicine; EMERGENCY PHYSICIAN Emergency Medicine; OTHER PHYSICIAN Psychiatry & Neurology Neurology; OTHER PHYSICIAN Psychiatry & Neurology Psychiatry
DX: F15.10 Other stimulant abuse, uncomplicated (principal); E87.1 Hypo-osmolality and hyponatremia; G25.4 Drug-induced chorea; F32.A Depression, unspecified; J45.909 Unspecified asthma, uncomplicated; T43.625A Adverse effect of amphetamines, initial encounter; F41.9 Anxiety disorder, unspecified; F12.90 Cannabis use, unspecified, uncomplicated; R40.0 Somnolence; G62.9 Polyneuropathy, unspecified; F17.210 Nicotine dependence, cigarettes, uncomplicated; G43.909 Migraine, unspecified, not intractable, without status migrainosus; R74.01 Elevation of levels of liver transaminase levels; D50.0 Iron deficiency anemia secondary to blood loss (chronic); Y92.9 Unspecified place or not applicable; Z75.1 Person awaiting admission to adequate facility elsewhere
CPT/HCPCS: 73590; 80048; 80053; 80306; 80307; 81003; 81015; 82607; 82728; 82746; 82962; 83540; 83550; 83735; 83935; 84300; 84703; 85025; 85027; 87070; 87147; 96361; 96372; 96374; 99285; 99406; J2916